=== PATIENT | male | born 1990 ===

== ENCOUNTER 2023-04-04 06:45 | Day surgery (SDC) | payer OTHER ==
[~2023-04-04 06:45] MED LIST: AUGMENTIN500TAB PO; DILTIAZEM60 M1 PO; ELIQUIS5 MG PO; HUMULIN R SC; IRON325 M1 PO; LEVOTHYROXIN200 MCG PO; METRONIDAZOLE500 MG PO; NOVOLIN N100 UNIT SC; PEPTO BISMOL262 MG PO; PROTONIX40 M2 PO
== END 2023-04-04 07:10 | disposition home or self-care (01) | DRG 379 ==
LOC: ENDO 06:45 → ORM 07:30
PROVIDERS: ATTEND Internal Medicine Gastroenterology
DX: K92.1 Melena (principal); D50.0 Iron deficiency anemia secondary to blood loss (chronic); R10.13 Epigastric pain; R10.84 Generalized abdominal pain; Z53.29 Procedure and treatment not carried out because of patient's decision for other reasons